=== PATIENT | female | born 1955 | race Caucasian/White ===

== ENCOUNTER → 2017-02-03 | Outpatient (CLI) | payer OTHER ==
--- NOTE | 2017-02-04 14:41 | MAM ---
History: Well woman exam. Date of exam: 02/03/2017 Services provided: Bilateral full field digital screening mammography. CAD, the images were reviewed with R2 computer aided detection. FINDINGS: Glandular tissue is scattered glandular contour with increased mammographic density. Study is compared with 2016 exam. No dominant mass, architectural distortion or clustered microcalcification. IMPRESSION: Benign exam Recommendation: Routine annual mammography BIRAD CATEGORY: 2 BENIGN Electronically signed by: Roxanne Hassan MD 02/04/2017 2:40 PM CDT
== END | disposition home or self-care (01) ==
LOC: MAMMO 14:57
PROVIDERS: ATTEND Obstetrics & Gynecology
DX: Z12.31 Encounter for screening mammogram for malignant neoplasm of breast (principal)

== ENCOUNTER → 2017-07-02 | Outpatient (CLI) | payer OTHER | END | disposition home or self-care (01) | LOC: LAB.O 06-22 11:06 | PROVIDERS: ATTEND Obstetrics & Gynecology | DX: R73.09 Other abnormal glucose (principal) ==

== ENCOUNTER → 2018-02-07 | Outpatient (CLI) | payer OTHER | LOC: LAB.O 14:17 | PROVIDERS: ATTEND Nurse Practitioner Family | DX: M06.9 Rheumatoid arthritis, unspecified (principal) ==

== ENCOUNTER → 2018-04-12 | Outpatient (CLI) | payer OTHER ==
--- NOTE | 2018-04-14 15:06 | MAM ---
EXAM DESCRIPTION: 3D Screening BILATERAL : Digital Mammography. CLINICAL HISTORY: 62 years Female SCREENING . No complaints. No family history of breast cancer. Childbirth. Postmenopausal. Taking HRT less than 5 years ago.. COMPARISON: 2-D digital screening bilateral study 02/03/2017.. Report from prior examination also reviewed. TECHNIQUE: Bilateral CC and MLO projection full-field images, 3-D tomosynthesis digital mammographic technique. CAD not utilized. FINDINGS: The breast parenchymal density pattern is: Scattered areas of fibroglandular density. No skin thickening or nipple retraction. Bilateral axillary lymph nodes. Bilateral solitary microcalcifications. Bilateral vascular calcifications. No new focal, stellate mass or density, focal asymmetry , and no suspicious microcalcifications bilaterally. Stable mammograms compared to prior study, taking into account differences in mammographic technique. IMPRESSION: BI-RADS CATEGORY: 2 - BENIGN FINDINGS. FOLLOW UP: Routine digital bilateral screening, one year interval from March 2018. Written communication explaining the IMPRESSION and follow-up, will be mailed to the patient and referring health care provider. According to the [employer], yearly mammograms are recommended starting at age 40 and continuing as long as a woman is in good health. Any breast change noted on a breast self-exam should be reported promptly to the patient's healthcare provider. Breast MRI is recommended for women with an approximately 20-25% or greater lifetime risk of breast cancer, including women with a strong family history of breast or ovarian cancer and women who have been treated for Hodgkin's disease. A negative mammographic report should not delay tissue diagnosis in patients with significant clinical history or physical findings. Extremely dense breast tissue limits the sensitivity of digital mammography. Electronically signed by: Zay Berger MD 04/14/2018 3:04 PM CDT
== END ==
LOC: MAMMO 14:00
PROVIDERS: ATTEND Obstetrics & Gynecology
DX: Z12.31 Encounter for screening mammogram for malignant neoplasm of breast (principal)

== ENCOUNTER → 2018-05-19 | Outpatient (CLI) | payer MEDICARE, OTHER | LOC: LAB.O 12:14 | PROVIDERS: ATTEND Psychiatry & Neurology Neurology | DX: R53.83 Other fatigue (principal); M54.16 Radiculopathy, lumbar region; G61.81 Chronic inflammatory demyelinating polyneuritis; Z79.899 Other long term (current) drug therapy ==

== ENCOUNTER 2018-08-08 13:20 | Emergency (ER) | payer MEDICARE, OTHER ==
--- NOTE | 2018-08-08 14:13 | ED.PDOC ---
History of Present Illness - General Chief Complaint: Lower Extremity Injury Stated Complaint: back pain Time Seen by Provider: 08/08/18 13:41 Source: patient Exam Limitations: no limitations - History of Present Illness Initial Comments: Cristal Gregg 63 y/o female stated that she finished taking a shower and drying her hair had sudden onset of sharp pains on her backright side with radiation to anterior aspect of her right thigh.Had seen neurologist Dr. 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 Timing/Duration: 1-3 hours Quality/Severity: sharpness Back Pain Location: lumbar spine Back Pain Radiation: lower legs - right Method of Injury/Prior Injury: other - NO INJURIES has CHRONIC LOW BACK PAIN Improving Factors: rest Worsening Factors: movement Associated Symptoms: denies symptoms Allergies/Adverse Reactions: Allergies NO KNOWN ALLERGY Allergy (Verified 04/05/16 01:05) Home Medications: Ambulatory Orders Dicyclomine HCl 1 tab PO TID 10/02/12 Estradiol 1 tab PO DAILY 10/02/12 Folic Saen-Qakokmahde-Zzalgtfl [Foltx 2.5-25-2 mg] 1 tab PO DAILY 10/02/12 Gabapentin 800 tab PO QID 10/02/12 Latanoprost 0.005% Ophth [Xalatan 0.005% Ophthalmic Drops] 1 drops OPHTH DAILY 10/02/12 Potassium Chloride [Klor-Con 10] 1 tab PO DAILY 10/02/12 Cholecalciferol [Vitamin D3] 2,000 unit PO DAILY 12/04/14 HYDROcodone 5MG/APAP 325MG [[place] 5/325] 1 ea PO .Q4H PRN 12/04/14 Naproxen [Naprosyn] 500 mg PO DAILY 12/04/14 Abatacept [Orencia] 125 mg SC DAILY 04/05/16 Amitriptyline HCl [Elavil] 25 mg PO DAILY 04/05/16 Hydrochlorothiazide 25 mg PO DAILY 04/05/16 Venlafaxine HCl 75 mg PO DAILY 04/05/16 Carisoprodol [Soma] 350 mg PO TID PRN #20 tab 08/08/18 Review of Systems - Review of Systems Constitutional: States: no symptoms reported EENTM: States: no symptoms reported Respiratory: States: no symptoms reported Cardiology: States: no symptoms reported Gastrointestinal/Abdominal: States: no symptoms reported Genitourinary: States: no symptoms reported Musculoskeletal: States: see HPI, back pain Neurological: States: other - radiculopathy Past Medical History (General) - Patient Medical History Hx Seizures: No Hx Stroke: No Hx Asthma: No Hx of COPD: No Hx Cardiac Disorders: No Hx Congestive Heart Failure: No Hx Pacemaker: No Hx Hypertension: Yes Hx Diabetes: No Hx Gastroesophageal Reflux: No Hx Renal Disease: No Hx Cancer: No Hx Hepatitis C: No Hx MRSA: No Hx Other PMH: Yes - rheumatoid arthritis Surgical History: appendectomy, cholecystectomy, other - hysterectomy,neck, bladder suspension,hernia repair - Vaccination History Hx Tetanus, Diphtheria Vaccination: Yes Hx Influenza Vaccination: No Hx Pneumococcal Vaccination: Yes Immunizations Up to Date: No - Social History Hx Tobacco Use: No Hx Chewing Tobacco Use: No Hx Alcohol Use: No Hx Substance Use: No Hx Substance Use Treatment: No Hx Depression: No Feels Threatened In Home Enviroment: No Feels Threatened In a Relationship: No Hx Physical Abuse: No Hx Emotional Abuse: No Hx Suspected Abuse: No - Activities of Daily Living Hospice Agency (if applicable):: None - Female History Patient is a Female of Child Bearing Age (10 -59 yrs old): No Patient : No Family Medical History - Family History Father Living Status: Cause of : bowel blockage Hx Family Hypertension: Yes - multiple family members Hx Family Cancer: Yes - sister-uterine Hx Family;Other: Rheumatoid arthritis-multiple sisters Physical Exam - Physical Exam General Appearance: Alert, Comfortable, No apparent distress Eyes, Ears, Nose, Throat Exam: normal ENT inspection Neck Exam: non-tender, full range of motion, normal alignment, normal inspection Cardiovascular/Respiratory: regular rate, rhythm, no M/R/G, normal peripheral pulses Peripheral Pulses: radial,right: 2+, radial,left: 2+ Gastrointestinal/Abdominal: normal bowel sounds, non tender, soft, no organomegaly Back Exam: no CVA tenderness, no vertebral tenderness Extremity Exam: no evidence of injury, normal range of motion, non-tender, no pedal edema Neurologic: no motor/sensory deficits, alert, oriented x 3, other - positive Straight leg raise test right 35 degrees;decrease DTR +1 right patellar reflex Skin Exam: normal color, warm/dry Progress - Progress Progress: 08/08/18 14:33 Vital Signs - 24 hr 08/08/18 13:21 Temperature 97.1 F L Pulse Rate [ 67 Apical] Respiratory 18 Rate Blood Pressure 142/75 [Left Arm] O2 Sat by Pulse 93 L Oximetry - Results/Orders Results/Orders: 08/08/18 15:03 URINE CULTURE W/COLONY COUNT Stat Laboratory Results - last 24 hr 08/08/18 08/08/18 08/08/18 14:42 14:42 15:03 WBC 7.4 RBC 4.18 L Hgb 12.4 Hct 36.7 MCV 87.9 MCH 29.6 MCHC 33.8 RDW 12.6 Plt Count 237 MPV 7.3 L Absolute Neuts (auto) 4.80 Absolute Lymphs (auto) 1.60 Absolute Monos (auto) 0.70 Absolute Eos (auto) 0.20 Absolute Basos (auto) 0.10 Neutrophils % 65.2 Lymphocytes % 21.2 Monocytes % 9.8 H Eosinophils % 3.0 Basophils % 0.8 Sodium 138 Potassium 3.4 L Chloride 96 L Carbon Dioxide 32 H Anion Gap 13.4 BUN 12 Creatinine 0.72 BUN/Creatinine Ratio 16.7 Random Glucose 105 Serum Osmolality 275.8 Calcium 9.5 Total Bilirubin 0.4 AST 26 ALT 28 Alkaline Phosphatase 70 Serum Total Protein 7.5 Albumin 4.4 Globulin 3.1 Albumin/Globulin Ratio 1.4 Urine Color Yellow Urine Appearance Clear Urine pH 7.0 Ur Specific [place] 1.015 Urine Protein Negative Urine Glucose (UA) Negative Urine Ketones Negative Urine Blood Negative Urine Nitrite Negative Urine Bilirubin Negative Urine Urobilinogen 0.2 Ur Leukocyte Esterase Small H Urine RBC 0 Urine WBC 1-3 Ur Epithelial Cells 0 Urine Bacteria 0 - EKG/XRAY/CT CT Ordered: No CT Interpretation Call Back: No Departure - Departure Clinical Impression: Acute exacerbation of chronic low back pain, Lumbar disc disease with radiculopathy, Personal history of rheumatoid arthritis Time of Disposition: 15:49 Disposition: Discharge to Home or Self Care Condition: Fair Departure Forms: ED Discharge - Pt. Copy, Patient Portal Self Enrollment Instructions: Spinal Stenosis, Herniated Disc (DC), Radiculopathy (DC), Spinal Stenosis (DC), Radiculopathy Activity: ambulate only with walker Referrals: Lance Pete MD [Primary Care Provider] - 1-2 Weeks Prescriptions: Carisoprodol [Soma] 350 mg PO TID PRN #20 tab PRN Reason: Muscle Spasms Home Medications: Ambulatory Orders Dicyclomine HCl 1 tab PO TID 10/02/12 Estradiol 1 tab PO DAILY 10/02/12 Folic Hqsb-Cnddorfvup-Wlbbxbhk [Foltx 2.5-25-2 mg] 1 tab PO DAILY 10/02/12 Gabapentin 800 tab PO QID 10/02/12 Latanoprost 0.005% Ophth [Xalatan 0.005% Ophthalmic Drops] 1 drops OPHTH DAILY 10/02/12 Potassium Chloride [Klor-Con 10] 1 tab PO DAILY 10/02/12 Cholecalciferol [Vitamin D3] 2,000 unit PO DAILY 12/04/14 HYDROcodone 5MG/APAP 325MG [[place] 5/325] 1 ea PO .Q4H PRN 12/04/14 Naproxen [Naprosyn] 500 mg PO DAILY 12/04/14 Abatacept [Orencia] 125 mg SC DAILY 04/05/16 Amitriptyline HCl [Elavil] 25 mg PO DAILY 04/05/16 Hydrochlorothiazide 25 mg PO DAILY 04/05/16 Venlafaxine HCl 75 mg PO DAILY 04/05/16 Carisoprodol [Soma] 350 mg PO TID PRN #20 tab 08/08/18 Additional Instructions: Need to take Hydrocodone every 4 hours as needed for pain;follow up with Neurologist 09 August 2018
[2018-08-08] MEDS: DEXAMETHASONE INJ 10 MG/ML VIAL IM ONE (15:14)
[2018-08-08] MEDS: MORPHINE SULFATE INJ 10 MG/ML VIAL IM ONE (15:15)
[2018-08-08] MEDS: ORPHENADRINE CITRATE 30 MG/ML AMP IM ONE (15:15)
[2018-08-08] MEDS: MORPHINE SULFATE INJ 10 MG/ML VIAL IV ONE (15:16)
[2018-08-08] MEDS: DEXAMETHASONE INJ 10 MG/ML VIAL IV ONE (15:16)
[2018-08-08] MEDS: ORPHENADRINE CITRATE 30 MG/ML AMP IV ONE (15:16)
[2018-08-08 16:17] VITALS: BP 150/90; TEMP 97.8; O2SAT 99
== END 2018-08-08 16:22 | disposition home or self-care (01) ==
LOC: ER 13:20
DX: M51.16 Intervertebral disc disorders with radiculopathy, lumbar region (principal); G89.29 Other chronic pain; M06.9 Rheumatoid arthritis, unspecified; I10 Essential (primary) hypertension; Z79.899 Other long term (current) drug therapy
CPT/HCPCS: 36415; 80053; 81001; 85025; 87086; J1100; J2270; J2360

== ENCOUNTER → 2018-12-20 | Outpatient (CLI) | payer MEDICARE, OTHER ==
--- NOTE | 2018-12-20 19:01 | MRI ---
EXAM DESCRIPTION: Cervical Spine: MRI. CLINICAL HISTORY: 63 years Female CERVICAL DISC DISORDER AT C5-C6 W/ RADICULOPATHY COMPARISON: Cervical TECHNIQUE: Multiplanar, high-field MRI, multiple sequences, non-contrast Cervical spine. FINDINGS: C2-C3: Decreased disc space posteriorly with desiccation of the disc. Tiny posterior midline bulge not touching the cord. Uncinate spur on the right and right facet arthrosis and hypertrophy resulting in neural foraminal stenosis. Mild narrowing of the left neural foramen. Mild narrowing of the canal. C3-C4: Minimal desiccation of the disc with narrowing of the posterior disc space. No significant disc bulging with no canal stenosis. Bilateral uncinate spurs. Arthrosis and hypertrophy of the right facet joint. Moderate narrowing of the left neural foramen with right neural foraminal stenosis. C4-C5: Disc desiccation with disc space maintained. Bilateral facet arthrosis and hypertrophy more right than left. Bilateral uncinate spurs. Right neural foraminal stenosis and mild to moderate left neural foraminal narrowing. C5-C6: Disc desiccation and minimal disc space loss. Posterior diffuse disc osteophyte complex bulge abutting the ventral cord and the left ventral cord. Bilateral uncinate spurs larger on the right than left. Facet arthrosis more on the right than left with hypertrophy. Posterior flavum ligaments impressing on the posterior cord with mild central canal stenosis. No cord edema. Bilateral moderate to severe neural foraminal narrowing. C6-C7: ACDF. Disc space essentially complete bony fusion. Bilateral uncinate spurs larger on the left than right. Borderline left neural foraminal stenosis. Mild to moderate right neural foraminal narrowing. Bilateral facet joints unremarkable. C7-T1: Minimal disc desiccation with no bulging. Disc space maintained. Bilateral facet arthrosis and hypertrophy. Hypertrophy of the posterior ligaments. Left uncinate spur. Right neural foramen minimally narrowed, left neuroforamen stenotic. Normal signal in the T1-T2 disc with no bulging. Disc spaces preserved. Canal and neural foramina are patent. Facet joints are unremarkable. Spinal alignment minimally kyphotic.. No cord compression or cord edema. Atlantoaxial joint minimal arthrosis.. Base of the cerebellar tonsils is just above the foramen magnum. Paravertebral soft tissues unremarkable.. Vertebral bodies are not compressed at any level. Normal marrow signal in the remaining vertebral bodies and the posterior elements. IMPRESSION: 1. Right neural foraminal stenosis at C2-3 is multifactorial. Correlate for right C3 radiculopathy. 2. Right neural foraminal stenosis at C3-4 is multifactorial. Correlate for right C4 radiculopathy. 3. Right neural foraminal stenosis at C4-C5 is multifactorial. Correlate for right C5 radiculopathy. Moderate left neural foraminal narrowing. 4. Posterior diffuse discussed by complex bulge and posterior ligaments impressing on the cord with mild central canal stenosis. No cord edema. Bilateral moderate to severe neural foraminal narrowing is multifactorial. Correlate for bilateral C6 radiculopathy. 5. C6-C7 ACDF with essentially complete bony fusion of the disc space. Borderline left neural foraminal stenosis. Correlate for left C7 radiculopathy. 6. Bilateral facet arthrosis and hypertrophy with hypertrophy of the posterior ligaments. Left uncinate spur. Multifactorial left neural foraminal stenosis. Correlate for left C8 radiculopathy. Electronically signed by: Zay Berger MD 12/20/2018 6:58 PM [employer]
== END ==
LOC: MRI 13:00
PROVIDERS: ATTEND Psychiatry & Neurology Neurology
DX: M50.122 Cervical disc disorder at C5-C6 level with radiculopathy (principal); M48.02 Spinal stenosis, cervical region

== ENCOUNTER → 2019-04-13 | Outpatient (CLI) | payer MEDICARE, OTHER ==
--- NOTE | 2019-04-14 13:47 | MAM ---
EXAM DESCRIPTION: 3D Screening BILATERAL : Digital Mammography. CLINICAL HISTORY: 63 years Female SCREENING . No complaints. No personal or family history of breast cancer. Childbirth. Postmenopausal 35+ years. HRT 5 or more years ago. Lifetime risk of developing breast cancer (Tyrer-Cuzick model)(%): 5.6. COMPARISON: Bilateral screening digital breast tomosynthesis 04/12/2018.. TECHNIQUE: Bilateral CC and MLO projection full-field images, digital tomosynthesis mammographic technique. Bilateral digital 2-D full-field MLO images. CAD not available for tomosynthesis or 2-D images. FINDINGS: The breast parenchymal density pattern is: Scattered areas of fibroglandular density. No skin thickening or nipple retraction. No new focal, stellate mass or density, focal asymmetry , and no suspicious microcalcifications bilaterally. Stable mammograms compared to prior study. IMPRESSION: Negative findings. BI-RADS CATEGORY: 1 - NEGATIVE FOLLOW UP: Routine digital bilateral screening, one year interval from date Written communication explaining the findings and follow-up, will be mailed to the patient and referring health care provider. According to the [employer], yearly mammograms are recommended starting at age 40 and continuing as long as a woman is in good health. Any breast change noted on a breast self-exam should be reported promptly to the patient's healthcare provider. Breast MRI is recommended for women with an approximately 20-25% or greater lifetime risk of breast cancer, including women with a strong family history of breast or ovarian cancer and women who have been treated for Hodgkin's disease. A negative mammographic report should not delay tissue diagnosis in patients with significant clinical history or physical findings. Extremely dense breast tissue limits the sensitivity of digital mammography. Electronically signed by: Zay Berger MD 04/14/2019 1:45 PM CDT
== END ==
LOC: MAMMO 15:30
PROVIDERS: ATTEND Obstetrics & Gynecology
DX: Z12.31 Encounter for screening mammogram for malignant neoplasm of breast (principal)

== ENCOUNTER → 2020-02-27 | Outpatient (CLI) | payer MEDICARE, OTHER | LOC: GMAE 10:55 | PROVIDERS: ATTEND Family Medicine | DX: I10 Essential (primary) hypertension (principal) ==

== ENCOUNTER → 2020-02-29 | Outpatient (CLI) | payer MEDICARE, OTHER | LOC: ECHO 11:08 | PROVIDERS: ATTEND Family Medicine | DX: I50.30 Unspecified diastolic (congestive) heart failure (principal); I51.7 Cardiomegaly; I10 Essential (primary) hypertension; R06.02 Shortness of breath ==

== ENCOUNTER → 2020-09-02 | Outpatient (CLI) | payer MEDICARE, OTHER ==
--- NOTE | 2020-09-03 17:02 | MAM ---
EXAM DESCRIPTION: 3D Screening BILATERAL : Digital Mammography. CLINICAL HISTORY: 65 years Female screening . No complaints. No personal or family history of breast cancer. Menarche age 11. Childbirth age 18. Menopause age 26. HRT 5 or more years ago.. Lifetime risk of developing breast cancer (Tyrer-Cuzick model)(%): 4.2. COMPARISON: prior. No prior reports available. TECHNIQUE: Bilateral CC and MLO projection full-field images, digital tomosynthesis mammographic technique. Bilateral digital 2-D full-field MLO images. and CC images. CAD available for 2-D images. Note: Patient unable to elevate chin above the [id number]-rvot on the right breast MLO tomosynthesis and 2-D projections due to medical condition. FINDINGS: The breast parenchymal density pattern is: Scattered areas of fibroglandular density. No skin thickening or nipple retraction. Vascular calcifications. The patient's chin is obscuring the upper pectoral muscle and part of the axillary region of right breast on the MLO projection. This is causing significant degradation of the axillary region of the right breast on MLO tomosynthesis images. Also pectoral muscle not seen on the left MLO projection, 2-D and tomosynthesis. No new focal, stellate mass or density, focal asymmetry , and no suspicious microcalcifications bilaterally. IMPRESSION: BI-RADS CATEGORY: 0 - INCOMPLETE- Need additional imaging evaluation. RECOMMENDATIONS: FOLLOW-UP: Recall for additional imaging: Repeat MLO 2-D and tomosynthesis images bilateral breasts.. Written communication concerning the IMPRESSION and Follow-up, will be mailed to the patient and referring health care provider. Electronically signed by: Zay Berger MD 09/03/2020 5:00 PM [facility]
== END ==
LOC: MAMMO 13:30
PROVIDERS: ATTEND Family Medicine
DX: Z12.31 Encounter for screening mammogram for malignant neoplasm of breast (principal)

== ENCOUNTER → 2020-10-16 | Outpatient (CLI) | payer MEDICARE, OTHER | LOC: BFHH 15:24 | PROVIDERS: ATTEND Family Medicine | DX: R30.0 Dysuria (principal) ==

== ENCOUNTER 2020-11-22 14:57 | Emergency (ER) | payer MEDICARE, OTHER ==
--- NOTE | 2020-11-22 15:12 | ED.PDOC ---
History of Present Illness - General Stated Complaint: Fall with multiple injuries Time Seen by Provider: 11/22/20 15:11 Source: patient, family Exam Limitations: no limitations Additional Information: Status post back surgery with fusion L2-L5 and hardware placement October 02, 2020. - History of Present Illness Initial Comments: Patient was seen in the emergency department by her spine surgeon for evaluation of 2 recent falls. Patient states she fell on the third and again yesterday. On the third she fell backwards landing flat on her back. Yesterday she fell forwards landing on her face. She denies loss of conscious. Patient does complain of neck pain. She also complains of pain in both hips and there is pain swelling and discoloration of her left thumb. Patient also complains of headache and notes that her blood pressures been elevated lately and Has been difficult to control. There is been no loss of conscious, confusion, disorientation, numbness or weakness. Timing/Duration: other - 2 days Severity: mild Improving Factors: rest Worsening Factors: movement Associated Symptoms: headaches Allergies/Adverse Reactions: Allergies Azathioprine Allergy (Verified 11/22/20 15:32) Hydroxychloroquine Allergy (Verified 11/22/20 15:32) Sulfa Antibiotics Allergy (Verified 11/22/20 15:32) Home Medications: Ambulatory Orders Dicyclomine HCl [Dicyclomine Hydrochloride] 1 tab PO TID 10/02/12 Estradiol 1 tab PO DAILY 10/02/12 Folic Jztd-Orgsgkmohc-Zwegcgim [Foltx 2.5-25-2 mg] 1 tab PO DAILY 10/02/12 Gabapentin 800 tab PO QID 10/02/12 Latanoprost 0.005% Ophth [Xalatan 0.005% Ophthalmic Drops] 1 drops OPHTH DAILY 10/02/12 Potassium Chloride [Klor-Con 10] 1 tab PO DAILY 10/02/12 Cholecalciferol [Vitamin D3] 2,000 unit PO DAILY 12/04/14 HYDROcodone 5MG/APAP 325MG [[place] 5/325] 1 ea PO .Q4H PRN 12/04/14 Naproxen [Naprosyn] 500 mg PO DAILY 12/04/14 Abatacept [Orencia] 125 mg SC DAILY 04/05/16 Amitriptyline HCl [Elavil] 25 mg PO DAILY 04/05/16 Hydrochlorothiazide 25 mg PO DAILY 04/05/16 Venlafaxine HCl 75 mg PO DAILY 04/05/16 Carisoprodol [Soma] 350 mg PO TID PRN #20 tab 08/08/18 Past Medical History (General) - Patient Medical History Hx Seizures: No Hx Stroke: No Hx Asthma: No Hx of COPD: No Hx Cardiac Disorders: No Hx Congestive Heart Failure: No Hx Pacemaker: No Hx Hypertension: Yes Hx Diabetes: No Hx Gastroesophageal Reflux: No Hx Renal Disease: No Hx Cancer: No Hx Hepatitis C: No Hx MRSA: No - Vaccination History Hx Tetanus, Diphtheria Vaccination: Yes Hx Influenza Vaccination: No Hx Pneumococcal Vaccination: Yes - Social History Hx Tobacco Use: No Hx Chewing Tobacco Use: No Hx Alcohol Use: No Hx Substance Use: No Hx Substance Use Treatment: No Hx Depression: No Hx Physical Abuse: No Hx Emotional Abuse: No Hx Suspected Abuse: No - Female History Patient : No Family Medical History - Family History Father Living Status: Cause of : bowel blockage Hx Family Hypertension: Yes - multiple family members Hx Family Cancer: Yes - sister-uterine Hx Family;Other: Rheumatoid arthritis-multiple sisters Physical Exam - Physical Exam General Appearance: Alert, Comfortable, Other - Head without swelling tenderness ecchymosis or discoloration. Eye Exam: bilateral normal Ears, Nose, Throat: hearing grossly normal, normal ENT inspection Neck: full range of motion, supple, other - Minimal Muscle tenderness, No midline vertebral tenderness, no spasm. Respiratory: lungs clear, normal breath sounds Cardiovascular/Chest: normal peripheral pulses, regular rate, rhythm Gastrointestinal/Abdominal: normal bowel sounds, non tender, soft Back Exam: vertebral tenderness, other - Well-healed midline surgical scar. Tender diffusely over the lower back without point tenderness, deformity, ecchymosis or deformity. Range of motion is limited due to pain. Extremity: other - The left thumb proximal and distal phalanx are discolored and tender, particularly on the volar surface. There is no deformity or significant swelling. Full range of motion of the IP and MCP. 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 Clonidine 0.1 mg p.o. 11/22/20 18:10 A Short arm thumb spica splint was applied To the left thumb. - Results/Orders Results/Orders: CT of the head without contrast showed age-related Changes but no acute findings. CT of the cervical spine showed age-related degenerative changes but no acute abnormalities. CT of the lumbar spine showed no fractures or Disruption of hardware placed. X-rays of both hips did not show fracture. X- ray of the left thumb showed a Very minimally displaced fracture Of the distal phalanx. Departure - Departure Clinical Impression: Falls, Fracture of thumb, Hypertension Time of Disposition: 17:26 Disposition: Discharge to Home or Self Care Condition: Good Departure Forms: ED Discharge - Pt. Copy Instructions: DI for Low Back Pain Diet: resume usual diet Activity: ambulate only with walker Referrals: FAIZAN GIANG MD [Primary Care Provider] - 1-2 Weeks Home Medications: Ambulatory Orders Dicyclomine HCl [Dicyclomine Hydrochloride] 1 tab PO TID 10/02/12 Estradiol 1 tab PO DAILY 10/02/12 Folic Klfr-Edvhayiuxt-Wozbuywd [Foltx 2.5-25-2 mg] 1 tab PO DAILY 10/02/12 Gabapentin 800 tab PO QID 10/02/12 Latanoprost 0.005% Ophth [Xalatan 0.005% Ophthalmic Drops] 1 drops OPHTH DAILY 10/02/12 Potassium Chloride [Klor-Con 10] 1 tab PO DAILY 10/02/12 Cholecalciferol [Vitamin D3] 2,000 unit PO DAILY 12/04/14 HYDROcodone 5MG/APAP 325MG [[place] 5/325] 1 ea PO .Q4H PRN 12/04/14 Naproxen [Naprosyn] 500 mg PO DAILY 12/04/14 Abatacept [Orencia] 125 mg SC DAILY 04/05/16 Amitriptyline HCl [Elavil] 25 mg PO DAILY 04/05/16 Hydrochlorothiazide 25 mg PO DAILY 04/05/16 Venlafaxine HCl 75 mg PO DAILY 04/05/16 Carisoprodol [Soma] 350 mg PO TID PRN #20 tab 08/08/18 Additional Instructions: See an orthopedist for further care.See your primary care doctor about your hypertension.See your remote sensing specialist about your recent back surgery as needed.Always ambulate only with a walker to prevent future falls.
[2020-11-22] MEDS ORDERED: cloNIDine HCL 0.1 MG TAB PO ONE (15:35)
[2020-11-22] MEDS ORDERED: ACETAMINOPHEN 500 MG TAB PO ONE (15:35)
--- NOTE | 2020-11-22 16:43 | CT ---
TECHNIQUE: Axial images of the lumbar spine were obtained with multiple reconstructions provided. This exam was performed according to our departmental dose-optimization program, which includes automated exposure control, adjustment of the mA and/or kV according to patient size and/or use of iterative reconstruction technique. CLINICAL HISTORY PROVIDED: Fall with back pain, recent back surgery with hard COMPARISON: None available. FINDINGS: Five lumbar type vertebral bodies are present. Alignment: No acute subluxation. Postoperative: L2-L5 posterior construct and decompression. No hardware complication. Fracture: None present. Paraspinal Soft Tissues/ Retroperitoneum: No acute findings. Degenerative: Multilevel lumbar spondylosis. IMPRESSION: No acute fracture or subluxation. Electronically signed by: Son Sidhu MD 11/22/2020 4:42 PM [facility]
--- NOTE | 2020-11-22 16:44 | CT ---
EXAM DESCRIPTION: Cervical Spine CLINICAL HISTORY: Fall with neck pain COMPARISON: None available. TECHNIQUE: Axial noncontast CT of the cervical spine with coronal and sagittal reformats. This exam was performed according to our departmental dose-optimization program, which includes automated exposure control, adjustment of the mA and/or kV according to patient size and/or use of iterative reconstruction technique. FINDINGS: Cervical vertebral body heights are maintained. Anterior interbody hardware fixation device at C5-6 is seen without hardware failure or loosening. At least partial interbody fusion is seen. Solid interbody fusion at C6-7. No acute fracture or posttraumatic positional abnormality of the cervical spine. Moderate posterior disc space narrowing from C2 through C4. Degenerative trace anterolisthesis of C4 on C5. Fusion of the left C2-3 facet joint. Moderate to severe facet hypertrophic and degenerative changes on the right from C2 through C6 and on the left at C4-5. No significant spinal canal stenosis. Multilevel foraminal encroachment right greater than left. Moderate disc space narrowing and moderate bilateral facet hypertrophic and degenerative changes at C7-T1 are seen with moderate left and mild right foraminal encroachment. Mild curvature of the cervical spine with convexity towards the left centered at T5. Visualized skull base shows no acute findings. Right IJ Mediport is seen. No pathologic lymphadenopathy. Visualized lung apices show no acute findings. IMPRESSION: No CT evidence of acute fracture or posttraumatic positional abnormality of the cervical spine. Interbody fusion from C5 through C7 is seen with anterior interbody hardware fixation device at C5-6. Mild to moderate disc degenerative disease at the nonsurgical levels is seen with moderate to severe right greater than left facet arthropathy. mild reversal the normal cervical lordosis could be secondary to patient positioning or muscle spasm.. Electronically signed by: Danilo Goode MD 11/22/2020 4:42 PM [facility]
--- NOTE | 2020-11-22 16:44 | RAD ---
EXAM DESCRIPTION: Hip,Left 2 Views CLINICAL HISTORY: 65 years Female, Fall COMPARISON: None. Findings: 2 views/radiographs Location: Left hip/pelvis No acute fracture or dislocation. Joint spaces are maintained. Soft tissues are unremarkable. IMPRESSION: No evidence of acute process in the left hip. Electronically signed by: Son Sidhu MD 11/22/2020 4:43 PM [facility]
--- NOTE | 2020-11-22 16:45 | RAD ---
EXAM DESCRIPTION: Thumb,Left CLINICAL HISTORY: Injury COMPARISON: None. TECHNIQUE: 3 views of the first digit of the left hand FINDINGS: The exam demonstrates a nondisplaced fracture of the shaft of the distal phalanx of the first digit. Soft tissue swelling is seen. No foreign body is observed. IMPRESSION: Nondisplaced fracture of the shaft of the distal phalanx of the first digit of left hand Electronically signed by: Berto Flower MD 11/22/2020 4:44 PM [facility]
--- NOTE | 2020-11-22 16:45 | RAD ---
EXAM DESCRIPTION: Hip,Right 2 Views CLINICAL HISTORY: 65 years Female, Fall COMPARISON: None. Findings: 2 views/radiographs Location: Right hip/pelvis No acute fracture or dislocation. Joint spaces are maintained. Soft tissues are unremarkable. IMPRESSION: No evidence of acute process in the right hip. Electronically signed by: Son Sidhu MD 11/22/2020 4:43 PM [facility]
--- NOTE | 2020-11-22 16:46 | CT ---
EXAM DESCRIPTION: Head CLINICAL HISTORY: Fall with head injury COMPARISON: None TECHNIQUE: Noncontrast transaxial CT images of the head are obtained from base to vertex. This exam was performed according to our departmental dose-optimization program, which includes automated exposure control, adjustment of the mA and/or kV according to patient size and/or use of iterative reconstruction technique. FINDINGS: The midline structures are not displaced. Sulci are age-appropriate. There are areas of decreased attenuation in the periventricular white matter and the white matter of the centrum semiovale. There is no evidence of mass, mass-effect, hydrocephalus, or acute intracranial hemorrhage. No abnormal extra axial fluid collection is seen. Bone windows show no evidence of depressed skull fracture. The visualized paranasal sinuses are unremarkable. IMPRESSION: 1. Age-appropriate atrophy with evidence of old small vessel ischemic type changes seen. 2. No acute abnormality is seen on noncontrast CT of the head. Electronically signed by: Danilo Goode MD 11/22/2020 4:45 PM [facility]
[2020-11-22 17:44] VITALS: BP 180/90; TEMP 96.9; O2SAT 96
== END 2020-11-22 17:44 | disposition home or self-care (01) ==
LOC: ER 14:57
DX: S62.522A Displaced fracture of distal phalanx of left thumb, initial encounter for closed fracture (principal); I10 Essential (primary) hypertension; M54.2 Cervicalgia; R51.9 Headache, unspecified; M25.551 Pain in right hip; M25.552 Pain in left hip; M54.5 Low back pain; R29.6 Repeated falls; M47.812 Spondylosis without myelopathy or radiculopathy, cervical region; W18.39XA Other fall on same level, initial encounter; Y92.9 Unspecified place or not applicable; Z98.890 Other specified postprocedural states; Z79.899 Other long term (current) drug therapy; Z88.8 Allergy status to other drugs, medicaments and biological substances; Z88.2 Allergy status to sulfonamides

== ENCOUNTER → 2020-11-28 | Outpatient (CLI) | payer MEDICARE, OTHER ==
--- NOTE | 2020-11-28 13:36 | RAD ---
EXAM DESCRIPTION: Hand,Left 3 Views CLINICAL HISTORY: PAIN IN LT THUMB COMPARISON: Previous x-ray left thumb November 22, 2020 TECHNIQUE: AP, LATERAL, AND OBLIQUE FINDINGS: Three-view tab hand shows fractured distal phalanx of the thumb unchanged in alignment. Advanced degenerative osteoarthrosis of the first carpometacarpal joint. Mild degenerative narrowing of the DIP and PIP joints of the fingers. There is no bone lesion. There are no significant arthritic changes. There is no radiopaque foreign body. IMPRESSION: Fracture distal phalanx of the left thumb. No change in alignment. Electronically signed by: Dontae Ordoñez MD 11/28/2020 1:[address] [facility]
== END ==
LOC: RAD 09:40
PROVIDERS: ATTEND Orthopaedic Surgery
DX: S62.525D Nondisplaced fracture of distal phalanx of left thumb, subsequent encounter for fracture with routine healing (principal)